=== PATIENT | male | born 1975 | race Two or more races ===

== ENCOUNTER 2021-07-15 17:57 | Emergency (ER) | payer OTHER ==
[~2021-07-15] VITALS: Ht 182.9 cm; Wt 74.8 kg
[2021-07-15 19:16] LABS: Basophils # (auto) 0.1 10 ^3/uL (0-0.2); Basophils % (auto) 0.7 % (0.0-2.0); Eosinophils # (auto) 0.6 10 ^3/uL (0-0.8); Eosinophils % (auto) 6.2 % (0.0-7.0); Hematocrit 40.7 % (41.0-53.0); Lymphocytes # (auto) 2.6 10 ^3/uL (0.4-5.4); Lymphocytes % (auto) 25.7 % (10.0-50.0); Mean Corpuscular Hemoglobin 29.1 pg (28.0-32.0); Mean Corpuscular Hgb Conc. 34.5 g/dL (32.0-36.0); Mean Corpuscular Volume 84.4 fL (80.0-100.0); Monocytes # (auto) 0.7 10 ^3/uL (0-1.3); Monocytes % (auto) 6.7 % (0.0-12.0); Neutrophils % (auto) 60.7 % (37.0-80.0); Nucleated Red Blood Cells % 0.1 %; Red Blood Cells 4.82 10^6/uL (4.5-5.90); Red Cell Distribution Width 13.5 % (11.8-14.3); White Blood Cell 9.9 10^3/uL (4.4-10.8)
[2021-07-15 19:37] LABS: Albumin 3.8 g/dL (3.4-5.0); Anion Gap 8 (5-15); Blood Urea Nitrogen 10 mg/dL (7-18); Calcium 9.5 mg/dL (8.5-10.1); Carbon Dioxide 21 mmol/L (21-32); Chloride 108 mmol/L (98-107); GFR African American 103 mL/min; GFR Non-African American 85 mL/min; Glucose 95 mg/dL (74-106); Potassium 3.8 mmol/L (3.5-5.1); Sodium 137 mmol/L (136-145)
[2021-07-15 19:45] LABS: Alanine Aminotransferase 81 U/L (16-61); Alkaline Phosphatase 102 U/L (45-117); Aspartate Aminotransferase 64 U/L (15-37); Total Protein 8.3 g/dL (6.4-8.2)
[2021-07-15] MEDS ORDERED: IOHEXOL 350 MG/ML 100ML IJ ONE (20:27)
[2021-07-15] MEDS ORDERED: ASPirin 81 mg TAB PO ONE (23:00)
[2021-07-15] MEDS ORDERED: NITROGLYCERIN 0.4 MG SL TAB SL ONE (23:00)
[2021-07-16] MEDS ORDERED: MORPHINE SULFATE 4 MG/ML SYR/VIAL IV ONE (00:30)
[2021-07-16 10:16] VITALS: BP 102/61
== END 2021-07-16 10:44 | disposition short-term general hospital (02) ==
LOC: EDSEX 17:57 → EDBD 17:57 → ER 18:01
DX: R06.02 Shortness of breath (principal); R19.7 Diarrhea, unspecified; R07.89 Other chest pain; Z90.89 Acquired absence of other organs; Z20.822 Contact with and (suspected) exposure to COVID-19
CPT/HCPCS: 36415; 71275; 80053; 83605; 83880; 84484; 85025; 85379; 87040; 87426; 93005; 96374; 99285; J2270; Q9967